=== PATIENT | male | born 1990 | race African-American/Black ===

== ENCOUNTER 2016-04-18 10:13 | Emergency (ER) ==
[2016-04-18 10:30] VITALS: BP 165/116
--- NOTE | 2016-04-18 10:31 | PROVIDER DOCUMENTATION ---
HPI-General Adult - General Chief Complaint: B/P Problems Stated Complaint: H BLOOD PRESSURE Allergies/Adverse Reactions: Patient Allergies Allergy/AdvReac Type Severity Reaction Status Date / Time No Known Allergies Allergy Verified 01/22/16 12:46 Home Medications: Home Medication List Medication Instructions Recorded Confirmed Last Taken Type Ibuprofen [Motrin] 800 mg PO TID PRN #90 tablet 01/02/16 01/22/16 01/15/16 Rx Lisinopril/Hydrochlorothiazide 1 each PO DAILY #90 tablet 01/02/16 01/22/16 Rx [Lisinopril-Hctz 20-25 mg Tab] Cyclobenzaprine [Flexeril] 10 mg PO TID #20 tablet 01/22/16 Unknown Rx Famotidine [Pepcid] 20 mg PO DAILY #20 tablet 01/22/16 Unknown Rx Ibuprofen [Motrin] 800 mg PO TID #20 tablet 01/22/16 01/22/16 01/15/16 Rx Ketorolac [Toradol] 10 mg PO Q6H PRN PRN #20 tablet 01/22/16 Unknown Rx Past History - Adult - PAST MEDICAL HISTORY-ADULT Review of Records: reports: Nursing Assessment Review, Medications Reviewed Cardiovascular: reports: HTN - PRIOR SURGERIES/PROCEDURES Surgical/Procedure History: reports: none - PRIOR HOSPITALIZATIONS Prior Hospitalizations: reports: none - IMMUNIZATION STATUS Childhood Immunizations: See Nurse Assessment Flu Vaccine: See Nurse Assessment Attestation - Scribe Verification/Attestation Scribe:: Marcelina Price Scribe documention review:: This chart was documented by a scribe and accurately reflects the service the provider performed and the decisions made by the provider.
== END 2016-04-18 11:15 | disposition left against medical advice (07) ==
LOC: P.ED 10:13
DX: I10 Essential (primary) hypertension (principal)
CPT/HCPCS: 99281

== ENCOUNTER 2016-07-12 19:36 | Inpatient (IN) ==
[2016-07-12] MEDS ORDERED: NS 1,000 ML IV ONE (20:28)
[2016-07-12] MEDS ORDERED: ZOFRAN IV ONE (20:30)
[2016-07-12] MEDS ORDERED: ATIVAN IV ONE (20:31)
[2016-07-12] MEDS ORDERED: TORADOL IV ONE (20:31)
[2016-07-12 21:08] LABS: URINE CULTURE NEEDED? NO; URINE MICRO REVIEW NEEDED? NO; URINE SOURCE CLEAN CATCH
[2016-07-12 21:14] LABS: BILIRUBIN URINE NEGATIVE (NEGATIVE); BLOOD URINE NEGATIVE (NEGATIVE); COLOR STRAW; GLUCOSE URINE NEGATIVE (NEGATIVE); LEUKOCYTES URINE NEGATIVE (NEGATIVE); NITRITE URINE NEGATIVE (NEGATIVE); PH URINE 5.5; PROTEIN URINE NEGATIVE (NEGATIVE); SP GRAVITY URINE 1.004; TURBIDITY URINE CLEAR (CLEAR); UROBILINOGEN URINE NORMAL (NORMAL)
[2016-07-12 21:15] LABS: UR EPITHELIAL CELLS <10 /HPF (<10); URINE BACTERIA NEGATIVE /HPF; URINE RBC <10 /HPF (<10); URINE WBC <10 /HPF (<10)
[2016-07-12 21:17] LABS: BASO% 0.1 % (0.0-0.8); EOS# 0.03 X1000 (0.0-0.7); EOS% 0.4 % (0.0-10.0); HEMATOCRIT 39.5 % (42.0-52.0); HEMOGLOBIN 15.3 g/dL (14.0-18.0); LYMPH# 3.32 X1000 (1.2-3.4); LYMPH% 44.3 % (20.5-51.1); MANUAL DIFF NEEDED? NO; MCH 33.6 PG (27-31); MCHC 38.7 g/dL (33-37); MCV 86.6 FL (81-99); MONO# 1.02 X1000 (0.11-0.59); MONO% 13.6 % (1.7-9.3); MPV 10.7 FL (7.4-10.4); NEUT% 41.6 % (42.2-75.2); PLT 213 X1000 (130-400); RBC 4.56 XMIL (4.7-6.1)
[2016-07-12 21:22] LABS: UR AMPHETAMINES QUAL NONE DETECTED (NONE DETECT); UR BARBITUATES QUAL NONE DETECTED (NONE DETECT); UR BENZODIAZEPIN QUAL NONE DETECTED (NONE DETECT); UR CANNABINOIDS QUAL NONE DETECTED (NONE DETECT); UR COCAINE QUAL NONE DETECTED (NONE DETECT); UR METHADONE QUAL NONE DETECTED (NONE DETECT); UR OPIATES QUAL NONE DETECTED (NONE DETECT); UR OXYCODONE QUAL NONE DETECTED (NONE DETECT); UR PCP QUAL NONE DETECTED (NONE DETECT)
--- NOTE | 2016-07-12 21:31 | PROVIDER DOCUMENTATION ---
HPI-General Adult - General Chief Complaint: Flank Pain Stated Complaint: BACK/KIDNEY PAIN Time Seen by Provider: 07/12/16 20:20 Source: patient Allergies/Adverse Reactions: Patient Allergies Allergy/AdvReac Type Severity Reaction Status Date / Time No Known Allergies Allergy Verified 07/12/16 20:09 Home Medications: Home Medication List Medication Instructions Recorded Confirmed Last Taken Type Lisinopril/Hydrochlorothiazide 1 each PO DAILY #90 tablet 01/02/16 07/12/16 Rx [Lisinopril-Hctz 20-25 mg Tab] Ranitidine HCl [Zantac] 1 tab PO DAILY 07/12/16 07/12/16 07/12/16 History - History of Present Illness -Gen Adult Nature of Presenting Problems: 26 yom with c/o withdrawals from xanax. Pt has used xanax everyday for over a year and was arrested 7 days ago and now having pain and nausea, vomiting. Location of Pain/Injury: reports: abdomen Pain Radiation: reports: no radiation Quality of Pain: reports: aching Severity: reports: moderate Onset/Duration: reports: 3 days ago Timing: reports: still present, getting worse Context/Activities at Onset: reports: none Modifying Factors: improves with: nothing Associated Symptoms: reports: nausea, vomiting Similar Symptoms Previously?: No Recently seen or treated by another doctor?: No Review of Systems - Adult - REVIEW OF SYSTEMS - ADULT Constitutional: reports: see HPI, night sweats Eyes: reports: no symptoms reported Ears, Nose, Mouth & Throat: reports: no symptoms reported Cardiovascular: reports: see HPI, palpitations Respiratory: reports: no symptoms reported Gastrointestinal: reports: see HPI, abdominal pain, nausea, vomiting Genitourinary: reports: no symptoms reported Musculoskeletal: reports: no symptoms reported Integumentary: reports: no symptoms reported Neurological: reports: no symptoms reported Psychiatric: reports: no symptoms reported Endocrine: reports: no symptoms reported Hematologic/Lymphatic: reports: no symptoms reported Allergic/Immunologic: reports: no symptoms reported All Other Systems: Reviewed and Negative Past History - Adult - PAST MEDICAL HISTORY-ADULT Review of Records: reports: Old Records Reviewed, Nursing Assessment Review, Medications Reviewed, Social history reviewed & non-contributory. Cardiovascular: reports: HTN - PRIOR SURGERIES/PROCEDURES Surgical/Procedure History: reports: none - PRIOR HOSPITALIZATIONS Prior Hospitalizations: reports: none - IMMUNIZATION STATUS Childhood Immunizations: See Nurse Assessment Flu Vaccine: See Nurse Assessment Physical Exam-General - PHYSICAL EXAM-ADULT Initial Vital Signs Reviewed: Yes - CONSTITUTIONAL General Appearance: appears well, alert, no apparent distress - EYES Eyes: PERRL/EOMI, pink conjunctivae - HEAD, EARS, NOSE, MOUTH & THROAT HENMT: normocephalic/atraumatic, moist mucous membranes, normal ENT inspection - NECK Neck: non-tender, full range of motion, supple, normal inspection - RESPIRATORY Respiratory: chest non-tender, lungs clear, normal breath sounds, no pleuratic chest pain, no respiratory distress, no accessory muscle use - CARDIOVASCULAR Cardiovascular: normal peripheral pulses, no edema, no gallop, no JVD, no murmur , tachycardia - GASTROINTESTINAL (ABDOMEN) Abdominal Exam: normal bowel sounds, soft, tenderness (to left flank). negative : hepatomegaly, spleenomegaly, McBurney's point tenderness, Charles's sign, obturator sign, prominent aortic pulsations, psoas, Rovsing's sign - LYMPHATIC Lymphatic: no adenopathy - MUSCULOSKELETAL Back Exam: normal inspection, no CVA tenderness, no vertebral tenderness Extremity: normal range of motion, non-tender, normal gait, normal inspection, no pedal edema, no calf tenderness, normal capillary refill, pelvis stable - SKIN Integumentary: normal color, normal turgor, diaphoresis - NEUROLOGIC Neurologic: grossly normal - PSYCHIATRIC Psych/Mental Status: oriented x 3 Progress - PLAN OF CARE/RESULTS Progress/Plan/Lab Results: Vital Signs - 8 hr 07/12/16 19:43 Temperature 97.7 F Pulse Rate 132 H Respiratory Rate 28 H Blood Pressure 148/109 O2 Sat by Pulse Oximetry 100 Laboratory Results - last 24 hr 07/12/16 07/12/16 07/12/16 19:54 19:54 20:45 WBC 7.49 RBC 4.56 L Hgb 15.3 Hct 39.5 L MCV 86.6 MCH 33.6 H MCHC 38.7 H RDW Std Deviation 11.7 Plt Count 213 MPV 10.7 H Immature Gran % (Auto) 0.0 Neut % (Auto) 41.6 L Lymph % (Auto) 44.3 [place] % (Auto) 13.6 H Eos % (Auto) 0.4 Baso % (Auto) 0.1 Immature Gran # (Auto) 0.00 Neut # (Auto) 3.11 Lymph # (Auto) 3.32 [place] # (Auto) 1.02 H Eos # (Auto) 0.03 Baso # (Auto) 0.01 Urine Source CLEAN CATCH Urine Color STRAW Urine Turbidity CLEAR Urine pH 5.5 Ur Specific [place] 1.004 Urine Protein NEGATIVE Ur Glucose (Stick) NEGATIVE Ur Ketones (Stick) 40 A Urine Blood NEGATIVE Urine Nitrite NEGATIVE Urine Bilirubin NEGATIVE Urobilinogen Dipstick NORMAL Urine Leukocytes NEGATIVE Urine WBC (Auto) <10 Urine RBC (Auto) <10 U Epithel Cells (Auto) <10 Urine Bacteria (Auto) NEGATIVE Urine Opiates Screen NONE DETECTED Ur Oxycodone Screen NONE DETECTED Ur Methadone, Qual NONE DETECTED Ur Barbiturates Screen NONE DETECTED Ur Phencyclidine Scrn NONE DETECTED Ur Amphetamines Screen NONE DETECTED U Benzodiazepines Scrn NONE DETECTED Urine Cocaine Screen NONE DETECTED U Cannabinoids Screen NONE DETECTED Orders Category Date Time Status Saline Loc NOW Care 07/12/16 20:28 Active CBC WITH ELECTRONIC DIFF [HEME] Stat Lab 07/12/16 20:45 Completed CMP [COMPREHENSIVE METABOLIC PANEL] [CHEM] Stat Lab 07/12/16 20:45 Received Cardiac Profile [CK PROFILE] [SP CHEM] Stat Lab 07/12/16 20:45 Received PROTIME WITH INR [COAG] Stat Lab 07/12/16 20:45 Received PTT [COAG] Stat Lab 07/12/16 20:45 Received URINALYSIS W/POSS RFLX CULT [URINALYSIS] Stat Lab 07/12/16 19:54 Completed URINE DRUG SCREEN Stat Lab 07/12/16 19:54 Completed 0.9% Sodium Chloride Inj [Ns] 1,000 ml Med 07/12/16 20:28 Active IV 999 mls/hr Ketorolac [Toradol] Med 07/12/16 20:31 Discontinued 30 mg IV NOW ONE Lorazepam [Ativan] Med 07/12/16 20:31 Discontinued 1 mg IV NOW ONE Ondansetron [Zofran] Med 07/12/16 20:30 Discontinued 4 mg IV NOW ONE Result Diagrams: 07/12/16 20:45 07/12/16 20:45 - CONSULTS/PCP/HOSPITALIST Notification #1 *Consult/PCP/Hospitalist*: Dr. Crespo Time Discussed: 22:20 Consult Disposition: Will see in ED, Admit Departure - Departure Time of Disposition Decision: 21:58 DIAGNOSIS: Withdrawal from benzodiazepine Qualifiers: Complication of substance-induced condition: with unspecified complication Qualified Code(s): F13.239 - Sedative, hypnotic or anxiolytic dependence with withdrawal, unspecified Disposition: ADMITTED INPATIENT 09 Certified Medical Emergency: Emergent Condition: Stable Referrals and Follow-Ups: None,PCP [Primary Care Provider] - - Critical Care Note This patient required my direct & personal management of CC.: No Attestation - Physician/ FITZ Attestation Patient care was provided by Advanced Practice Provider:: Yes Advanced Practice Provider:: Garrett Brooks Advanced Practice Provider documentation review:: The Mid-level provider documentation, treatment plan and medical decision making was reviewed by the physician who agrees with all treatment and medical decision making by the MLP.
[2016-07-12 21:33] LABS: AGAP 24; ALBUMIN 4.9 g/dL (3.5-5.0); ALKALINE PHOSPHATASE 71 U/L (32-122); BUN 26 mg/dL (8-22); CALCIUM 9.6 mg/dL (8.8-10.2); CHLORIDE 92 mmol/L (98-107); COSMO 272; GOT 78 U/L (10-34); GPT 38 U/L (10-44); POTASSIUM 2.9 mmol/L (3.5-5.1); SODIUM 134 mmol/L (136-145); TCO2 18 mmol/L (25-35); TOTAL BILIRUBIN 1.09 mg/dL (0.20-1.00); TOTAL PROTEIN 8.4 g/dL (6.3-8.3)
[2016-07-12 21:44] LABS: CK PROFILE 4111 U/L (24-204); INR 1.02; PROTIME 10.7 Seconds (9.2-11.7); PTT 30.1 Seconds (22.0-36.0)
[2016-07-12 22:04] LABS: CK INDEX 0.2 (0.0-2.5)
[2016-07-12] MEDS ORDERED: ULTRAM PO PRN (23:12)
[2016-07-12] MEDS: POTASSIUM CHLORIDE 20 MEQ/SWI 20 MEQ/100 ML IVPB IV SCH (23:30)
[2016-07-12] MEDS ORDERED: SODIUM CHLORIDE 0.9% INJ SCH (23:56)
[2016-07-12] MEDS ORDERED: ZOFRAN IV PRN (23:56)
[2016-07-12] MEDS ORDERED: ATIVAN IV PRN (23:56)
[2016-07-13] MEDS: NS 1,000 ML IV SCH ×2 (00:04→22:38)
[2016-07-13] MEDS: PROTONIX IV SCH (00:12)
[2016-07-13] MEDS: POTASSIUM CHLORIDE 20 MEQ/SWI 20 MEQ/100 ML IVPB IV SCH (04:17)
--- NOTE | 2016-07-13 04:50 | HISTORY AND PHYSICAL ---
PRIMARY CARE PHYSICIAN: None. CHIEF COMPLAINT: Left flank pain. HISTORY OF PRESENT ILLNESS: This is a 26-year-old male, with a past medical history of hypertension, who was brought from half-way because of abdominal pain. Apparently, he started having abdominal pain today that started in the left flank, and then remained there. He reports that the pain was like a 6 to 7 over 10 in intensity. He denies any burning upon urination. Denies any fever. He reports using Xanax. He does not remember exactly the strength, but he was taking that for a while on a regular basis. He got those medications from the street, as well as a synthetic marijuana, and pain pills as well. He reports that he is not able to have a bowel movement for the last 5-7 days. He also, as was mentioned before, reported some abdominal pain. He denies any blood in the urine. Upon ER evaluation, he was found to have a creatinine 1.5, with low potassium at 2.9, so he is being admitted for further evaluation and treatment. PAST MEDICAL HISTORY: Hypertension. PAST SURGICAL HISTORY: None. SOCIAL HISTORY: Patient was brought from half-way. He does not drink alcohol, but he reports smoking 2-3 packs per day of cigarettes since he was 15. He uses synthetic marijuana, benzodiazepines, and also pain pills as recreational drugs. FAMILY HISTORY: Noncontributory. REVIEW OF SYSTEMS: Eleven systems were reviewed, and all symptoms are related to H P. PHYSICAL EXAMINATION: VITAL SIGNS: Temperature 97.7 degrees, heart rate 85, respiratory rate 18, blood pressure 123/78, O2 saturation 100% on room air. GENERAL: This is a 26-year-old male, lying in bed, in no acute distress. HEENT: Head is normocephalic, atraumatic. Anicteric sclerae and pale conjunctivae. Mucous membranes moist. NECK: Supple. No JVD noted. No carotid bruits. No lymphadenopathy. No thyromegaly. CARDIOVASCULAR: S1, S2 heard. No murmurs, gallops, or rubs. Regular rate and rhythm. RESPIRATORY: Clear bilaterally to auscultation. No work of breathing or using accessory muscles. ABDOMEN: Soft, nontender to palpation. Bowel sounds present. No organomegaly. EXTREMITIES: No clubbing, cyanosis, or edema. Peripheral pulses present in both legs. NEUROLOGICAL: Patient is alert and oriented x3. Able to move 4 extremities. Cranial nerves 2-12 grossly normal. LABORATORY DATA: CBC unremarkable. BMP remarkable for potassium 2.9, creatinine 1.5, and BUN 26, with a CK of 4000. Negative urinalysis and negative UDS. ASSESSMENT: 1. Possible benzodiazepine withdrawal. 2. Abdominal pain. 3. Hypertension. PLAN: 1. Patient is being admitted to the hospital because of abdominal pain. He also reports being constipated for the last 5-6 days. Also, according to the ER, when he was seen initially here, he was kind of anxious, and considering this history of regular benzodiazepine abuse, I was informed that this patient could also have benzodiazepine withdrawal. In any case, patient needs to be admitted to the hospital. Because of this abdominal pain, and also there are no signs of peritoneal irritation, I prefer to do a CT of the abdomen and pelvis. I will see what it shows. For this acute kidney injury, I think it is multifactorial because the patient reports not being able to drink enough water daily, and also patient for blood pressure was on lisinopril and HCTZ, which definitely will impact renal function. I going to stop this medication. I am going start IV fluids at 150 mL/h. We will check BMP daily. Our plan will be modified depending upon the results of the CT of the abdomen. 2. Acute kidney injury. We are going to check BMP daily. We will go from there. 3. Further recommendations to follow according to the clinical situation of the patient. cc: Dale Morel MD
[2016-07-13 05:27] LABS: BASO% 0.2 % (0.0-0.8); EOS# 0.02 X1000 (0.0-0.7); EOS% 0.4 % (0.0-10.0); HEMATOCRIT 35.8 % (42.0-52.0); HEMOGLOBIN 13.3 g/dL (14.0-18.0); LYMPH# 2.01 X1000 (1.2-3.4); LYMPH% 35.6 % (20.5-51.1); MANUAL DIFF NEEDED? YES; MCH 32.9 PG (27-31); MCHC 37.2 g/dL (33-37); MCV 88.6 FL (81-99); MONO# 0.87 X1000 (0.11-0.59); MONO% 15.4 % (1.7-9.3); MPV 10.5 FL (7.4-10.4); NEUT% 48.4 % (42.2-75.2); PLT 181 X1000 (130-400); RBC 4.04 XMIL (4.7-6.1)
[2016-07-13 05:39] LABS: AGAP 21; BUN 22 mg/dL (8-22); CALCIUM 8.4 mg/dL (8.8-10.2); CHLORIDE 98 mmol/L (98-107); COSMO 278; POTASSIUM 3.5 mmol/L (3.5-5.1); SODIUM 138 mmol/L (136-145); TCO2 19 mmol/L (25-35)
--- NOTE | 2016-07-13 07:22 | Diag Imaging Result Doc PS360 ---
ABDOMEN/PELVIS W/O CONTRAST - 07/12/2016 INDICATION: abdominal pain TECHNIQUE: A CT dose reduction protocol was used. COMPARISON: 12/13/2014 FINDINGS: No radiodense renal stones. No hydronephrosis or hydroureter. There is a small area of focal fatty change of the anterior surface of the liver. No bowel obstruction or inflammation. The liver, gallbladder, spleen, pancreas, adrenals, and kidneys are normal. Urinary bladder and rectum are normal. IMPRESSION: Negative exam. Electronically signed by Esvin Woodruff 07/13/2016 7:20 AM
[2016-07-13 07:25] LABS: EOS 1 % (1-10); LYMPHS 28 % (21-51); MONO 4 % (1-9)
[2016-07-13] MEDS: NORVASC PO SCH (08:39)
--- NOTE | 2016-07-13 19:20 | PROGRESS NOTE ---
DATE: 07/13/2016 SUBJECTIVE: This is a 26-year-old, past medical history hypertension, brought in from long-term because of abdominal pain. Apparently he started having abdominal pain, left flank pain and it remained there. He reports that his pain was 6 to 7/10 in intensity. Denies any burning upon urination. Denied any fever, reports using Xanax, he does not remember exactly the strength but he was taking for a while regular basis. He got these medications from the street as well as some synthetic marijuana, pain pills as well of course that he is not able to have a bowel movement last 5, 6, 7 days and some abdominal discomfort. PAST MEDICAL HISTORY: Hypertension. ASSESSMENT AND PLAN: 1. Patient admitted to the hospital because of abdominal pain and constipated. Suspect there was some benzodiazepine withdrawal. He is feeling better today. 2. Some acute renal insufficiency. Stopped his lisinopril/hydrochlorothiazide. 3. Blood pressure looks well controlled, not sure he needed that medicine. He got an abdominal pelvic CT, negative exam. He is eating. Lab looks good. Suspect continue IV fluids. His orders I suspect he can be discharged in the morning. Getting normal saline 150 mL an hour, lorazepam 1 mg IV q.2 hours p.r.n., Norvasc 5 mg a day, he is on Ultram 50 mg p.o. q.4 hours p.r.n. cc: Jp Johnson MD
[2016-07-14] MEDS: PROTONIX IV SCH (01:11)
[2016-07-14] MEDS: NS 1,000 ML IV SCH (05:08)
[2016-07-14 06:44] LABS: MANUAL DIFF NEEDED? NO
[2016-07-14 06:52] LABS: BASO% 0.2 % (0.0-0.8); EOS# 0.06 X1000 (0.0-0.7); EOS% 1.3 % (0.0-10.0); HEMATOCRIT 33.4 % (42.0-52.0); HEMOGLOBIN 12.1 g/dL (14.0-18.0); LYMPH# 2.23 X1000 (1.2-3.4); LYMPH% 49.6 % (20.5-51.1); MCH 33.1 PG (27-31); MCHC 36.2 g/dL (33-37); MCV 91.3 FL (81-99); MONO# 0.67 X1000 (0.11-0.59); MONO% 14.9 % (1.7-9.3); PLT 151 X1000 (130-400); RBC 3.66 XMIL (4.7-6.1)
[2016-07-14 07:00] LABS: AGAP 13; BUN 14 mg/dL (8-22); CALCIUM 8.4 mg/dL (8.8-10.2); CHLORIDE 103 mmol/L (98-107); COSMO 281; POTASSIUM 3.6 mmol/L (3.5-5.1); SODIUM 141 mmol/L (136-145); TCO2 25 mmol/L (25-35)
[2016-07-14 07:37] VITALS: BP 128/84
[2016-07-14] MEDS: NORVASC PO SCH (09:54)
--- NOTE | 2016-07-14 10:24 | DISCHARGE SUMMARY ---
ADMISSION DATE: 07/12/2016 DISCHARGE DATE: 07/14/2016 HISTORY OF PRESENT ILLNESS: This is a 26-year-old with a past medical history of hypertension. Brought in from half-way because of abdominal pain. Apparently, he stated he started having abdominal pain on 07/12/2016. It started in the left flank, remained there. Reports the pain was about a 7/10 in intensity. Denies any burning upon urination. Denied any fever. He was using Xanax. Does not remember the exact strength. He was taking it for a while on a regular basis. Got these medications from the street as well as synthetic marijuana and pain medicines. Reports that he was not able to have a bowel movement for the last 5-7 days. He also mentioned before, reported some abdominal pain. Denied blood in the urine. On ER evaluation, found to have creatinine 1.5, potassium 2.9. HOSPITAL COURSE: Admitted for evaluation. Potassium was supplemented. Gave him some fluids. He improved. Abdominal pain improved. [place] that maybe this could be benzodiazepine withdrawal. We were able to advance his diet. A CT of the abdomen and pelvis done on the was completely negative exam. Repeat lab, hematocrit stable at 33 and MCV of 91. Chemistries looked good. Potassium supplement. [place] he could go back and discharged him on 07/14/2016. He was taken off of his lisinopril/hydrochlorothiazide. He was put on Norvasc 5 mg a day. If he does well, I will discharge him on Norvasc 5 mg a day. He was given some Ultram here for pain. We will discharge him just on Norvasc 5 mg daily. cc: Jp Johnson MD
== END 2016-07-14 12:20 ==
LOC: ED 19:36 → EDIPHOLD 23:02 → SUATTDRO 23:02 → 3N 07-13 11:02
PROVIDERS: ATTEND Emergency Medicine